=== PATIENT | female | born 1980 | race Caucasian/White ===

== ENCOUNTER 2017-05-08 08:00 | Emergency (ER) | payer BC ==
[2017-05-08 08:20] LABS: BASOPHILS 0.5 % (0-2); EOSINOPHILS 3.1 % (0-7); HEMOGLOBIN 15.3 g/dL (12-16); IMMATURE GRANULOCYTES 0.1 % (0-5); LYMPHOCYTES 24.1 % (15-50); MCH 32.7 pg (26.0-34.0); MCV 96.2 fL (80.0-100.0); MEAN PLATELET VOLUME 10.2 fL (7.4-10.4); MONOCYTES 7.2 % (2-11); PLATELET COUNT 292 10x3/uL (130-400); RBC 4.68 10x6/uL (4.00-5.40); RDW 12.5 % (11.5-14.5)
[2017-05-08 08:28] LABS: APPEARANCE CLOUDY (CLEAR); COLOR YELLOW (YELLOW); SPECIFIC GRAVITY 1.025 (1.005-1.020)
[2017-05-08 08:29] LABS: BILIRUBIN NEGATIVE (NEGATIVE); GLUCOSE NEGATIVE (NEGATIVE); KETONE NEGATIVE (NEGATIVE); LEUKOCYTE ESTERASE TRACE (NEGATIVE); NITRITE NEGATIVE (NEGATIVE); PROTEIN TRACE mg/dL (NEGATIVE); UROBILINOGEN NORMAL (NORMAL)
[2017-05-08 08:31] LABS: RED CELLS - URINE 0-5 /hpf (0-5); WHITE CELLS - URINE 0-5 /hpf (0-5)
[2017-05-08 08:32] LABS: AMORPHOUS SEDIMENT <1+ /lpf (NONE SEEN); BACTERIA MODERATE /hpf (NONE SEEN)
[2017-05-08 08:34] LABS: UDS - AMPHET NEGATIVE QUAL (NEGATIVE); UDS - BARB NEGATIVE QUAL (NEGATIVE); UDS - BENZO NEGATIVE QUAL (NEGATIVE); UDS - COCAINE NEGATIVE QUAL (NEGATIVE); UDS - METH NEGATIVE QUAL (NEGATIVE); UDS - OPIATE NEGATIVE QUAL (NEGATIVE); UDS - PCP NEGATIVE QUAL (NEGATIVE); UDS - THC NEGATIVE QUAL (NEGATIVE)
[2017-05-08 08:36] LABS: ALBUMIN 4.1 g/dL (3.4-5.0); ANION GAP 11.5 mmol/L (8-16); BILIRUBIN - TOTAL 0.48 mg/dL (0.2-1.3); CALCIUM 9.7 mg/dL (8.5-10.1); CARBON DIOXIDE 28.4 mmol/L (21.0-32.0); CREATININE - SERUM 0.9 mg/dL (0.6-1.3); POTASSIUM - SERUM 3.9 mmol/L (3.5-5.1); PROTEIN - SERUM 8.3 g/dL (6.4-8.2)
[2017-05-08 08:38] LABS: HCG SERUM NEGATIVE (NEGATIVE)
== END 2017-05-08 13:04 | disposition home or self-care (01) ==
LOC: D.ER 08:00
PROVIDERS: Emergency Medicine
DX: R10.9 Unspecified abdominal pain (principal)

== ENCOUNTER 2018-08-21 12:01 | Emergency (ER) | payer MEDICAID ==
[~2018-08-21] VITALS: Ht 160 cm; Wt 63.6 kg
[2018-08-21 12:06] VITALS: BP 120/72; Ht 160 cm; Wt 63.6 kg
== END 2018-08-21 13:02 | disposition left against medical advice (07) ==
LOC: D.ER 12:01
DX: R51 Headache (principal)